=== PATIENT | female | born 1970 | race Caucasian/White ===

== ENCOUNTER → 2018-07-22 | Outpatient (CLI) | payer OTHER ==
--- NOTE | 2018-07-31 08:07 | PF ---
[address] [address] PULMONARY FUNCTION REPORT Name: ANTHONY OLSON Room: [facility]#: [id number] Admission: 07/22/18 Attend Phys: Larisa Rueda MD Discharge: Date of : 66 Report #: [id number] THIS REPORT FOR: //name// CC: Larisa Rueda DATE OF SERVICE: 07/22/2018 DATE OF STUDY: 07/22/2018. REQUESTING PHYSICIAN: Larisa Rueda M.D. FINDINGS: Spirometry reveals a normal FEV1 of 2.42 and an FVC of 3.28. FEV1/FVC ratio is 74%. Mid flows are mildly decreased. Post-bronchodilator, there was no significant change. Note, she was given only 1 puff of albuterol due to her history of tachycardia in the past. Lung volumes by plethysmography are essentially normal. Diffusion capacity was mildly decreased. IMPRESSION: These PFTs are consistent with a very mild obstructive process. Seen primarily at the level of the smaller airways. Did not have any significant change seen after low-dose inhaled bronchodilator. Very mild decrease in diffusion capacity, suggest clinical correlation. <ELECTRONICALLY SIGNED> By: Susan Newby MD 07/31/18 [id number] Newby MD /nt
== END ==
LOC: M.PUL 12:30
DX: R06.02 Shortness of breath (principal); Z87.891 Personal history of nicotine dependence

== ENCOUNTER → 2018-07-27 | Outpatient (CLI) | payer OTHER | LOC: M.RAD 13:30 | DX: R06.02 Shortness of breath (principal); F17.210 Nicotine dependence, cigarettes, uncomplicated; Z88.0 Allergy status to penicillin ==

== ENCOUNTER 2021-05-03 18:28 | Emergency (ER) | payer BC ==
[~2021-05-03] VITALS: Ht 157.5 cm; Wt 88.0 kg
[2021-05-03 20:03] LABS: ABSOLUTE BASOPHILS 0.2 thou/uL (0.0-0.2); ABSOLUTE EOSINOPHILS 0.2 thou/uL (0.0-0.7); ABSOLUTE LYMPHOCYTES 2.7 thou/uL (0.8-5.3); ABSOLUTE MONOCYTES 0.8 thou/uL (0.0-1.2); BASOPHILS 1.4 %; EOSINOPHILS 1.6 %; HEMATOCRIT 42.3 % (37.0-47.0); HEMOGLOBIN 14.5 gm/dL (12.0-15.0); LYMPHOCYTES 23.2 %; MCH 29.6 pg (26.0-34.0); MCHC 34.3 g/dL (28.0-37.0); MCV 86.3 fL (80.0-100.0); MONOCYTES 6.4 %; MPV 11.2 fl. (7.2-11.1); NUCLEATED RBCS 0 /100WBC; PLATELET COUNT* 195 thou/uL (150-400); POLYS 67.4 %; RDW-CV 14.2 % (10.5-14.5); WBC 11.8 thou/uL (4.0-11.0)
[2021-05-03 20:05] LABS: URINE BILIRUBIN NEGATIVE (Negative); URINE BLOOD NEGATIVE (Negative); URINE CLARITY CLEAR; URINE COLOR YELLOW; URINE GLUCOSE-RANDOM NEGATIVE (Negative); URINE KETONES NEGATIVE (Negative); URINE LEUKOCYTES-REFLEX NEGATIVE (Negative); URINE NITRITE-REFLEX NEGATIVE (Negative); URINE PROTEIN NEGATIVE (Negative); URINE SPECIFIC GRAVITY 1.025 (1.005-1.030); URINE UROBILINOGEN 0.2 E.U./dl (0.2-1.0)
[2021-05-03 20:07] LABS: CALCIUM 9.3 mg/dL (8.5-10.1); CREATININE 0.8 mg/dL (0.6-1.3)
[2021-05-03 20:08] LABS: POTASSIUM 4.1 mmol/L (3.5-5.1)
[2021-05-03 20:12] LABS: ALBUMIN 3.9 g/dL (3.4-5.0); TOTAL BILIRUBIN 0.3 mg/dL (<0.1-1.0); TOTAL PROTEIN 7.7 g/dL (6.4-8.2)
[2021-05-03] MEDS ORDERED: DILTIAZEM 24HR120 M1 PO ×2 (21:33)
[2021-05-03] MEDS ORDERED: BYSTOLIC10 MG PO ×2 (21:33)
[2021-05-03 22:10] VITALS: BP 165/93
--- NOTE | 2021-05-04 09:24 | EKG ---
[place] [address] ELECTROCARDIOGRAM REPORT Name: ANTHONY OLSON Room: [facility]#: [id number] Admission: 05/03/21 Attend Phys: Discharge: 05/03/21 Date of : 66 Date of Service: 05/03/212009 Report #: [id number] THIS REPORT FOR: //name// [facility] ED Test Date: 2021-05-03 Test Time: 20:10:35 Pat Name: ANTHONY OLSON Department: Room: Gender: F Laundry Equipment Operator: : 1970 Requested By: Crystal Dumont Order Number: [id number] MD: Boom Nicole Measurements Intervals [place] Rate: 83 P: 50 TX: 149 QRS: 42 QRSD: 98 T: 15 QT: 360 QTc: 423 Interpretive Statements Sinus rhythm Abnormal R-wave progression, early transition Baseline wander in lead(s) II,III,aVF Compared to ECG 09/02/2013 10:50:13 No significant changes Electronically Signed On 05-04-2021 9:23:47 CDT by Boom Nicole [email or web address] <ELECTRONICALLY SIGNED> By: Boom Nicole MD, [facility] 05/04/21 0923 09 09 Boom Nicole MD, [facility] /EPI
== END 2021-05-03 22:11 | disposition home or self-care (01) ==
LOC: M.ERS 18:28
PROVIDERS: Emergency Medicine
DX: I10 Essential (primary) hypertension (principal); R42 Dizziness and giddiness; F17.210 Nicotine dependence, cigarettes, uncomplicated; Z88.0 Allergy status to penicillin; Z98.890 Other specified postprocedural states

== ENCOUNTER → 2021-06-08 | Outpatient (CLI) | payer OTHER ==
[~2021-06-08] MED LIST: BYSTOLIC10 MG PO; DILTIAZEM 24HR120 M1 PO
== END ==
LOC: M.CT 10:56
PROVIDERS: ATTEND Internal Medicine Cardiovascular Disease
DX: Z13.6 Encounter for screening for cardiovascular disorders (principal)